=== PATIENT | male | born 1945 | race Caucasian/White ===

== ENCOUNTER 2016-08-31 19:00 | Emergency (ER) | payer OTHER ==
[~2016-08-31] VITALS: Ht 175.3 cm; Wt 72.7 kg
[~2016-08-31 19:00] MED LIST: AMOXICILLIN500 MG PO; BENICAR20 MG PO; CABOMETYX20 MG PO; CABOMETYX40 MG PO; KEFLEX250 MG PO; LIPITOR80 MG PO; NORCO 5/3251 TABLET PO; PHENERGAN-CODE120 ML PO; TENORMIN25 MG PO; TENORMIN50 MG PO; TRILIPIX135 MG PO; VITAMIN D2 PO; VITAMIN D22000 UNIT PO; VITAMIN D32000 UNI1 PO; XARELTO20 MG PO
[2016-08-31 20:28] LABS: HEMATOCRIT 35.9 % (38.0-50.0); MCH 29.3 PG (29.0-34.0); MCHC 31.8 G/DL (30.0-36.0); MCV 92.3 FL (86-99); MEAN PLAT.VOLUME 9.2 uM^3 (9.0-12.4); PLATELET COUNT 208 K/uL (156-360); RBC DIS.WIDTH-CV 16.8 % (11.8-14.6); RBC DIS.WIDTH-SD 56.2 % (39-53); RED BLOOD COUNT 3.89 M/uL (4.00-5.50); WHITE BLOOD COUNT 8.9 K/uL (4.1-10.2)
[2016-08-31 20:49] LABS: CHLORIDE 105 mEq/L (99-109); SODIUM 137 mEq/L (136-147)
[2016-08-31 20:52] LABS: GLUCOSE 94 mg/dL (70-99)
[2016-08-31 20:53] LABS: ANION GAP 10 MEQ/L (2-14)
[2016-08-31 20:54] LABS: TOTAL BILIRUBIN 1.1 mg/dL (0.0-1.0)
[2016-08-31 20:55] LABS: ALKALINE PHOSPHATASE 130 IU/L (3-129); GFR ESTIMATE (CALCULATED) 58 mL/min/
[2016-08-31 20:56] LABS: UREA NITROGEN (BUN) 19 mg/dL (9-23)
[2016-08-31 20:59] LABS: LIPASE 47 U/L (1.0-51.0)
[2016-09-01 05:14] VITALS: BP 161/70
== END 2016-09-01 03:06 | disposition home or self-care (01) ==
LOC: EME 19:00
PROVIDERS: Physician Assistant
DX: K59.00 Constipation, unspecified (principal); C79.00 Secondary malignant neoplasm of unspecified kidney and renal pelvis; K52.89 Other specified noninfective gastroenteritis and colitis; E78.5 Hyperlipidemia, unspecified; Z87.891 Personal history of nicotine dependence
CPT/HCPCS: 74176; 80053; 83690; 85027; 99281; 99285

== ENCOUNTER 2017-01-30 14:23 | Inpatient (IN) | payer OTHER ==
[~2017-01-30] VITALS: Ht 175.3 cm; Wt 70.0 kg
[~2017-01-30 14:23] MED LIST changes: +LASIX20 MG PO
[2017-01-30 15:46] LABS: BASOPHIL COUNT 0.1 K/uL (0-0.1); EOSINOPHIL (%) 12.4 % (0-5); EOSINOPHIL COUNT 0.8 K/uL (0-0.3); HEMATOCRIT 38.6 % (38.0-50.0); IMMATURE GRANULOCYTE (%) 0.3 % (0.0-0.7); INSTRUMENT ABS NEUTROPHIL CT 2.8 K/uL; LYMPHOCYTE COUNT 2.5 K/uL (1.0-2.8); MCH 35.3 PG (29.0-34.0); MCHC 32.4 G/DL (30.0-36.0); MEAN PLAT.VOLUME 10.2 uM^3 (9.0-12.4); MONOCYTE (%) 6.6 % (3-12); MONOCYTE COUNT 0.4 K/uL (0-0.8); NEUTROPHIL (%) 41.6 % (45-76); NEUTROPHIL COUNT 2.8 K/uL (1.8-6.4); PLATELET COUNT 161 K/uL (156-360); RBC DIS.WIDTH-CV 15.1 % (11.8-14.6); RED BLOOD COUNT 3.54 M/uL (4.00-5.50); WHITE BLOOD COUNT 6.7 K/uL (4.1-10.2)
[2017-01-30 15:58] LABS: CHLORIDE 111 mEq/L (99-109); POTASSIUM 4.4 mEq/L (3.7-5.4); SODIUM 139 mEq/L (136-147)
[2017-01-30 15:59] LABS: MAGNESIUM 1.1 mg/dL (1.3-2.7)
[2017-01-30 16:00] LABS: GLUCOSE 114 mg/dL (70-99)
[2017-01-30 16:02] LABS: ANION GAP 11 MEQ/L (2-14); TOTAL BILIRUBIN 0.6 mg/dL (0.0-1.0)
[2017-01-30 16:04] LABS: ALKALINE PHOSPHATASE 94 IU/L (3-129); GFR ESTIMATE (CALCULATED) 24 mL/min/
[2017-01-30 16:05] LABS: UREA NITROGEN (BUN) 29 mg/dL (9-23)
[2017-01-30 16:08] LABS: TROP-I INTERPRETATION NEGATIVE; TROPONIN-I 0.12 ng/mL (0.0-0.30)
[2017-01-30] MEDS ORDERED: K-DUR20 MEQ PO (18:51)
[2017-01-31] VITALS (8 sets, daily range): BP systolic 90–106; BP diastolic 51–75
[2017-01-31 01:31] LABS: CHLORIDE 116 mEq/L (99-109); POTASSIUM 3.9 mEq/L (3.7-5.4); SODIUM 141 mEq/L (136-147)
[2017-01-31 01:32] LABS: GLUCOSE 101 mg/dL (70-99)
[2017-01-31 01:34] LABS: ANION GAP 8 MEQ/L (2-14)
[2017-01-31 01:36] LABS: GFR ESTIMATE (CALCULATED) 26 mL/min/
[2017-01-31 01:36] LABS: C DIFF TOXIN NEGATIVE (NEGATIVE)
[2017-01-31 01:37] LABS: UREA NITROGEN (BUN) 29 mg/dL (9-23)
[2017-01-31 01:41] LABS: PROBE CHECK PASS; SPECIMEN PROCESSING CONTROL PASS
[2017-01-31 01:41] LABS: TROP-I INTERPRETATION NEGATIVE
[2017-01-31] MEDS ORDERED: ZUPLENZ4 MG PO (02:24)
[2017-01-31] MEDS ORDERED: METOPROLOL TART25 MG PO (02:24)
[2017-01-31 04:30] LABS: BASOPHIL COUNT 0.1 K/uL (0-0.1); EOSINOPHIL (%) 7.8 % (0-5); EOSINOPHIL COUNT 0.5 K/uL (0-0.3); HEMATOCRIT 36.2 % (38.0-50.0); IMMATURE GRANULOCYTE (%) 0.1 % (0.0-0.7); INSTRUMENT ABS NEUTROPHIL CT 3.8 K/uL; LYMPHOCYTE COUNT 2.3 K/uL (1.0-2.8); MCH 35.4 PG (29.0-34.0); MCV 110.4 FL (86-99); MEAN PLAT.VOLUME 10.8 uM^3 (9.0-12.4); MONOCYTE (%) 3.5 % (3-12); MONOCYTE COUNT 0.2 K/uL (0-0.8); NEUTROPHIL (%) 55.3 % (45-76); NEUTROPHIL COUNT 3.8 K/uL (1.8-6.4); PLATELET COUNT 132 K/uL (156-360); RBC DIS.WIDTH-SD 61.1 % (39-53); RED BLOOD COUNT 3.28 M/uL (4.00-5.50); WHITE BLOOD COUNT 6.9 K/uL (4.1-10.2)
[2017-01-31 05:01] LABS: CHLORIDE 116 mEq/L (99-109); POTASSIUM 4.2 mEq/L (3.7-5.4); SODIUM 142 mEq/L (136-147)
[2017-01-31 05:03] LABS: GLUCOSE 131 mg/dL (70-99)
[2017-01-31 05:04] LABS: ANION GAP 12 MEQ/L (2-14); TROP-I INTERPRETATION NEGATIVE; TROPONIN-I 0.13 ng/mL (0.0-0.30)
[2017-01-31 05:07] LABS: GFR ESTIMATE (CALCULATED) 25 mL/min/
[2017-01-31 05:08] LABS: UREA NITROGEN (BUN) 30 mg/dL (9-23)
[2017-02-01 04:00] VITALS: BP 93/66
[2017-02-01 04:34] LABS: ADD MIUA? YES; BILIRUBIN NEGATIVE; BLOOD NEGATIVE; COLOR AMBER ((YELLOW)); GLUCOSE (STRIP) NEGATIVE; KETONES 5; LEUKOCYTES NEGATIVE; NITRITE NEGATIVE; PROTEIN (STRIP) 100; SPECIFIC GRAVITY 1.027 (1.000-1.030); UROBILINOGEN 0.2 MG/DL (0.2-1.0)
[2017-02-01 05:10] LABS: BACTERIA 3+ /HPF; CASTS PRESENT /LPF; EPITHELIAL CELLS RARE /HPF; MUCUS NONE SEEN /LPF; RED BLOOD CELLS 0-5 /HPF (0-5); UCUL ADDED? YES; WHITE BLOOD CELLS 0-5 /HPF (0-5)
[2017-02-01 05:11] LABS: CRYSTALS NONE SEEN; HYALINE CASTS 0-5 /LPF
[2017-02-01 07:28] LABS: INTERNAL CONTROL VALID? YES
[2017-02-01 07:58] VITALS: BP 99/72
[2017-02-01 08:32] LABS: EOSINOPHIL (%) 0 % (0-5); HEMATOCRIT 36.5 % (38.0-50.0); IMMATURE GRANULOCYTE (%) 0.3 % (0.0-0.7); INSTRUMENT ABS NEUTROPHIL CT 5.2 K/uL; LYMPHOCYTE COUNT 1.1 K/uL (1.0-2.8); MCH 36.2 PG (29.0-34.0); MCHC 33.2 G/DL (30.0-36.0); MCV 109.3 FL (86-99); MEAN PLAT.VOLUME 11.1 uM^3 (9.0-12.4); MONOCYTE (%) 3.5 % (3-12); MONOCYTE COUNT 0.2 K/uL (0-0.8); NEUTROPHIL (%) 78.9 % (45-76); NEUTROPHIL COUNT 5.2 K/uL (1.8-6.4); PLATELET COUNT 130 K/uL (156-360); RBC DIS.WIDTH-CV 15.2 % (11.8-14.6); RBC DIS.WIDTH-SD 59.7 % (39-53); RED BLOOD COUNT 3.34 M/uL (4.00-5.50); WHITE BLOOD COUNT 6.6 K/uL (4.1-10.2)
[2017-02-01] MEDS ORDERED: HYDROCORTISONE5 MG PO (08:44)
[2017-02-01] MEDS ORDERED: LEVOFLOXACIN750 MG PO (08:44)
[2017-02-01 09:34] LABS: ANION GAP 12 MEQ/L (2-14); CHLORIDE 112 MEQ/L (99-109); GFR ESTIMATE (CALCULATED) 27 mL/min/; GLUCOSE 124 mg/dL (70-99); POTASSIUM 3.7 MEQ/L (3.7-5.4); SAMPLE HEMOLYSIS CHECK 0; SAMPLE ICTERIC CHECK 0; SAMPLE LIPEMIA CHECK 0; SODIUM 141 MEQ/L (136-147); UREA NITROGEN (BUN) 30 mg/dL (9-23)
== END 2017-02-01 10:41 | disposition home or self-care (01) | DRG 871 ==
LOC: EME 14:23 → EDOF 01-31 00:11 → ENRESERV 01-31 00:13 → 4EAST 01-31 01:56
PROVIDERS: Emergency Medicine; Hospitalist; Internal Medicine
DX: A41.9 Sepsis, unspecified organism (principal); R65.20 Severe sepsis without septic shock; J69.0 Pneumonitis due to inhalation of food and vomit; N17.9 Acute kidney failure, unspecified; C64.1 Malignant neoplasm of right kidney, except renal pelvis; C79.71 Secondary malignant neoplasm of right adrenal gland; C79.72 Secondary malignant neoplasm of left adrenal gland; E27.40 Unspecified adrenocortical insufficiency; I13.0 Hypertensive heart and chronic kidney disease with heart failure and stage 1 through stage 4 chronic kidney disease, or unspecified chronic kidney disease; I50.21 Acute systolic (congestive) heart failure; N18.3 Chronic kidney disease, stage 3 (moderate); E83.42 Hypomagnesemia; E86.0 Dehydration; E86.1 Hypovolemia; K52.9 Noninfective gastroenteritis and colitis, unspecified; E87.2 Acidosis; I27.20 Pulmonary hypertension, unspecified; I07.1 Rheumatic tricuspid insufficiency; I42.0 Dilated cardiomyopathy; I48.0 Paroxysmal atrial fibrillation; I25.10 Atherosclerotic heart disease of native coronary artery without angina pectoris; R42 Dizziness and giddiness; I95.9 Hypotension, unspecified; R55 Syncope and collapse; N13.30 Unspecified hydronephrosis; Q21.1 Atrial septal defect; E78.5 Hyperlipidemia, unspecified; Z79.01 Long term (current) use of anticoagulants; Z87.891 Personal history of nicotine dependence; Z96.642 Presence of left artificial hip joint
CPT/HCPCS: 71010; 71250; 74176; 76705; 80048; 80048 91; 80053; 80400; 81003; 83605; 83735; 83880; 84443; 84484; 85025; 87040; 87070; 87086; 87177; 87205; 87449; 87493; 87506; 93005; 93306; 93970; 99202; 99281; 99285; J0295; J0456; J1100; J2543; J3475; J7030; J7040; J7050; J7120

== ENCOUNTER 2017-02-26 10:28 | Inpatient (IN) | payer OTHER ==
[~2017-02-26] VITALS: Ht 175.3 cm; Wt 72.2 kg
[~2017-02-26 10:28] MED LIST changes: +HYDROCORTISONE5 MG PO; +IMODIUM A-D2 M2 PO; +K-DUR20 MEQ PO; +LEVOFLOXACIN750 MG PO; +LOPRESSOR25 MG PO; +METOPROLOL TART25 MG PO; +ZUPLENZ4 MG PO
[2017-02-26 11:16] LABS: HEMATOCRIT 38.3 % (38.0-50.0); MCHC 33.4 G/DL (30.0-36.0); MCV 107.6 FL (86-99); MEAN PLAT.VOLUME 10.7 uM^3 (9.0-12.4); PLATELET COUNT 140 K/uL (156-360); RBC DIS.WIDTH-CV 15.4 % (11.8-14.6); RBC DIS.WIDTH-SD 62.2 % (39-53); RED BLOOD COUNT 3.56 M/uL (4.00-5.50); WHITE BLOOD COUNT 4.3 K/uL (4.1-10.2)
[2017-02-26 11:31] LABS: CHLORIDE 113 mEq/L (99-109); POTASSIUM 4.8 mEq/L (3.7-5.4); SODIUM 138 mEq/L (136-147)
[2017-02-26 11:33] LABS: GLUCOSE 98 mg/dL (70-99)
[2017-02-26 11:34] LABS: ANION GAP 10 MEQ/L (2-14)
[2017-02-26 11:37] LABS: GFR ESTIMATE (CALCULATED) 11 mL/min/ (58.99-99999)
[2017-02-26 11:38] LABS: UREA NITROGEN (BUN) 58 mg/dL (9-23)
[2017-02-26 12:58] LABS: ADD MIUA? NO; BILIRUBIN NEGATIVE; BLOOD NEGATIVE; COLOR YELLOW ((YELLOW)); GLUCOSE (STRIP) NEGATIVE; KETONES NEGATIVE; LEUKOCYTES NEGATIVE; NITRITE NEGATIVE; PROTEIN (STRIP) 30; SPECIFIC GRAVITY 1.018 (1.000-1.030); UROBILINOGEN 0.2 MG/DL (0.2-1.0)
[2017-02-26 13:55] LABS: LIPASE 37 U/L (1.0-51.0)
[2017-02-26 14:00] LABS: TROP-I INTERPRETATION NEGATIVE; TROPONIN-I 0.06 ng/mL (0.0-0.30)
[2017-02-26] MEDS ORDERED: ONDANSETRON HCL8 MG PO (17:46)
[2017-02-26] MEDS ORDERED: POTASSIUM CHLO20 ME2 PO (17:47)
[2017-02-26] MEDS ORDERED: HYDROCORTISONE5 MG PO (17:47)
[2017-02-26] MEDS ORDERED: LEVOFLOXACIN750 MG PO (17:48)
[2017-02-26] MEDS ORDERED: OLMESARTAN MEDO20 MG PO (17:48)
[2017-02-26 20:45] VITALS: BP 98/58
[2017-02-26 23:31] LABS: C DIFF TOXIN NEGATIVE (NEGATIVE)
[2017-02-26 23:33] LABS: PROBE CHECK PASS; SPECIMEN PROCESSING CONTROL PASS
[2017-02-27] VITALS (9 sets, daily range): BP systolic 83–102; BP diastolic 52–68
[2017-02-27 04:25] LABS: EOSINOPHIL (%) 12.9 % (0-5); EOSINOPHIL COUNT 0.5 K/uL (0-0.3); HEMATOCRIT 32.1 % (38.0-50.0); INSTRUMENT ABS NEUTROPHIL CT 1.3 K/uL; LYMPHOCYTE COUNT 1.4 K/uL (1.0-2.8); MCH 35.2 PG (29.0-34.0); MCHC 32.7 G/DL (30.0-36.0); MCV 107.7 FL (86-99); MONOCYTE (%) 9.8 % (3-12); MONOCYTE COUNT 0.4 K/uL (0-0.8); NEUTROPHIL (%) 37.7 % (45-76); NEUTROPHIL COUNT 1.3 K/uL (1.8-6.4); RBC DIS.WIDTH-CV 15.3 % (11.8-14.6); RBC DIS.WIDTH-SD 61.1 % (39-53); RED BLOOD COUNT 2.98 M/uL (4.00-5.50); WHITE BLOOD COUNT 3.6 K/uL (4.1-10.2)
[2017-02-27 04:33] LABS: CHLORIDE 122 mEq/L (99-109); POTASSIUM 5.4 mEq/L (3.7-5.4); SODIUM 140 mEq/L (136-147)
[2017-02-27 04:35] LABS: GLUCOSE 85 mg/dL (70-99)
[2017-02-27 04:37] LABS: ANION GAP 5 MEQ/L (2-14)
[2017-02-27 04:40] LABS: UREA NITROGEN (BUN) 50 mg/dL (9-23)
[2017-02-27 04:53] LABS: GFR ESTIMATE (CALCULATED) 15 mL/min/ (58.99-99999); PLATELET COUNT 98 K/uL (156-360)
[2017-02-27 09:52] LABS: TOTAL BILIRUBIN 0.6 mg/dL (0.0-1.0)
[2017-02-27 09:53] LABS: ALKALINE PHOSPHATASE 65 IU/L (3-129)
[2017-02-27 09:55] LABS: DIRECT BILIRUBIN 0.3 mg/dL (0.0-0.3)
[2017-02-27 09:58] LABS: MAGNESIUM 0.9 mg/dL (1.3-2.7)
[2017-02-28 03:44] VITALS: BP 100/63
[2017-02-28 05:13] LABS: CHLORIDE 117 mEq/L (99-109); SODIUM 140 mEq/L (136-147)
[2017-02-28 05:15] LABS: GLUCOSE 79 mg/dL (70-99)
[2017-02-28 05:17] LABS: ANION GAP 7 MEQ/L (2-14)
[2017-02-28 05:20] LABS: UREA NITROGEN (BUN) 38 mg/dL (9-23)
[2017-02-28 05:22] LABS: GFR ESTIMATE (CALCULATED) 22 mL/min/ (58.99-99999)
[2017-02-28 05:32] LABS: DIGOXIN 1.5 ng/mL (0.8-2.0)
[2017-02-28 06:17] LABS: VANCOMYCIN, TROUGH 5.7 MCG/ML (10-20)
[2017-02-28 07:51] VITALS: BP 130/76
[2017-02-28 12:00] VITALS: BP 100/69
[2017-02-28 21:10] VITALS: BP 111/78
[2017-03-01] VITALS (7 sets, daily range): BP systolic 96–107; BP diastolic 62–79
[2017-03-01 06:11] LABS: ANION GAP 5 MEQ/L (2-14); CHLORIDE 116 MEQ/L (99-109); GFR ESTIMATE (CALCULATED) 27 mL/min/ (58.99-99999); GLUCOSE 76 mg/dL (70-99); MAGNESIUM 1.9 mg/dl (1.3-2.7); POTASSIUM 5.2 MEQ/L (3.7-5.4); SAMPLE HEMOLYSIS CHECK 0; SAMPLE ICTERIC CHECK 0; SAMPLE LIPEMIA CHECK 0; SODIUM 140 MEQ/L (136-147); UREA NITROGEN (BUN) 37 mg/dL (9-23)
[2017-03-02 04:30] VITALS: BP 107/77
[2017-03-02 06:32] LABS: ANION GAP 5 MEQ/L (2-14); CHLORIDE 113 MEQ/L (99-109); GFR ESTIMATE (CALCULATED) 35 mL/min/ (58.99-99999); GLUCOSE 74 mg/dL (70-99); MAGNESIUM 1.7 mg/dl (1.3-2.7); POTASSIUM 5.4 MEQ/L (3.7-5.4); SAMPLE HEMOLYSIS CHECK 0; SAMPLE ICTERIC CHECK 0; SAMPLE LIPEMIA CHECK 0; SODIUM 136 MEQ/L (136-147); UREA NITROGEN (BUN) 31 mg/dL (9-23)
[2017-03-02 07:15] VITALS: BP 108/74
[2017-03-02 11:28] VITALS: BP 111/69
[2017-03-02 16:55] VITALS: BP 115/83
[2017-03-02 19:15] VITALS: BP 110/70
[2017-03-03 00:10] VITALS: BP 107/73
[2017-03-03 04:09] VITALS: BP 106/77
[2017-03-03 06:12] LABS: ANION GAP 3 MEQ/L (2-14); CHLORIDE 114 MEQ/L (99-109); GFR ESTIMATE (CALCULATED) 37 mL/min/ (58.99-99999); GLUCOSE 83 mg/dL (70-99); MAGNESIUM 1.6 mg/dl (1.3-2.7); POTASSIUM 5.5 MEQ/L (3.7-5.4); SAMPLE HEMOLYSIS CHECK 0; SAMPLE ICTERIC CHECK 0; SAMPLE LIPEMIA CHECK 0; SODIUM 140 MEQ/L (136-147); UREA NITROGEN (BUN) 28 mg/dL (9-23)
[2017-03-03 07:11] VITALS: BP 106/76
[2017-03-03] MEDS ORDERED: XARELTO15 MG PO (11:04)
[2017-03-03] MEDS ORDERED: CORDARONE200 MG PO (11:10)
[2017-03-03] MEDS ORDERED: DIGOXIN125 MCG PO (11:10)
[2017-03-03] MEDS ORDERED: NABI650T PO (11:11)
[2017-03-03] MEDS ORDERED: MAG DELAY70 MG PO (11:11)
[2017-03-03] MEDS ORDERED: VITAMIN D2000 UNI1 PO (11:11)
== END 2017-03-03 12:44 | disposition home or self-care (01) | DRG 682 ==
LOC: EME 10:28 → 4EAST 17:01 → EDOF 17:01 → ENRESERV 17:08 → 4EAST 20:26 → ENRESERV 03-03 10:17 → 4EAST 03-03 12:44
PROVIDERS: Internal Medicine; Physician Assistant
DX: N17.9 Acute kidney failure, unspecified (principal); J18.9 Pneumonia, unspecified organism; D61.818 Other pancytopenia; C78.00 Secondary malignant neoplasm of unspecified lung; E87.2 Acidosis; E83.42 Hypomagnesemia; I42.9 Cardiomyopathy, unspecified; E83.51 Hypocalcemia; C64.1 Malignant neoplasm of right kidney, except renal pelvis; E87.5 Hyperkalemia; N18.3 Chronic kidney disease, stage 3 (moderate); T45.1X5A Adverse effect of antineoplastic and immunosuppressive drugs, initial encounter; I12.9 Hypertensive chronic kidney disease with stage 1 through stage 4 chronic kidney disease, or unspecified chronic kidney disease; I25.10 Atherosclerotic heart disease of native coronary artery without angina pectoris; E27.9 Disorder of adrenal gland, unspecified; E83.52 Hypercalcemia; R80.9 Proteinuria, unspecified; R01.1 Cardiac murmur, unspecified; R64 Cachexia; Z87.891 Personal history of nicotine dependence; Z96.642 Presence of left artificial hip joint; N13.9 Obstructive and reflux uropathy, unspecified; I48.92 Unspecified atrial flutter; I48.0 Paroxysmal atrial fibrillation; I50.9 Heart failure, unspecified; K52.9 Noninfective gastroenteritis and colitis, unspecified; E78.5 Hyperlipidemia, unspecified; E86.0 Dehydration; N13.30 Unspecified hydronephrosis; I95.9 Hypotension, unspecified; Z88.5 Allergy status to narcotic agent; Z66 Do not resuscitate; Z79.01 Long term (current) use of anticoagulants; Z80.9 Family history of malignant neoplasm, unspecified; Z90.2 Acquired absence of lung [part of]; Z68.21 Body mass index [BMI] 21.0-21.9, adult
CPT/HCPCS: 36415; 71010; 71250; 74176; 80048; 80069; 80076; 80162; 80202; 81003; 82306; 82330; 82533 91; 83605; 83690; 83735; 84145 90; 84484; 85025; 85027; 87493; 92610 GN; 93005; 94010; 94668; 96360; 96361; 96374 59; 99202; 99281; 99285; J0692; J1160; J1644; J2405; J2543; J3370; J3475; J7030; J7040; J7050